=== PATIENT | female | born 1950 | race Caucasian/White ===

== ENCOUNTER 2017-05-15 15:54 | Emergency (ER) | payer MEDICARE ==
[~2017-05-15] VITALS: Ht 170.2 cm; Wt 83.4 kg
[~2017-05-15 15:54] MED LIST: CYCL-259 PO; DULO60CA7 PO; ENOX100S4 SQ; GABA300C10 PO; HYDR-3307 PO; HYDR2TAB29 PO; Initiate Coumadin Protocol MC; METO10TA82 PO; ONDA4TAB12 PO; ONDA4TAB7 PO; OXYC-307 PO; OXYC10TA47 PO; SULF1TAB24 PO
[2017-05-15 16:06] VITALS: BP 161/94
[2017-05-15] MEDS ORDERED: SODIUM CHLORIDE 0.9% 1,000 ML IV ONE (16:10)
[2017-05-15] MEDS ORDERED: CYCL-259 PO (16:15)
[2017-05-15] MEDS ORDERED: ONDANSETRON 2MG/ML, 2ML ONE (16:25)
[2017-05-15] MEDS ORDERED: MORPHINE SULFATE 4 MG/ML, 1ML ONE ×2 (16:25→17:03)
[2017-05-15] MEDS ORDERED: ONDANSETRON 2MG/ML, 2ML IVPush ONE (16:30)
[2017-05-15] MEDS ORDERED: SODIUM CHLORIDE 0.9% 1,000ML IVBOLUS ONE (16:30)
[2017-05-15] MEDS: MORPHINE SULFATE 4 MG/ML, 1ML IVPush PRN ×2 (16:40→17:16)
== END 2017-05-15 18:10 | disposition home or self-care (01) ==
LOC: ED 18:04
DX: S42.212A Unspecified displaced fracture of surgical neck of left humerus, initial encounter for closed fracture (principal); W18.09XA Striking against other object with subsequent fall, initial encounter; Y93.89 Activity, other specified; Y92.488 Other paved roadways as the place of occurrence of the external cause; Y99.8 Other external cause status; Z98.84 Bariatric surgery status
CPT/HCPCS: 29105; 73030; 96361; 96374; 96375; 96376; 99285; J2405; J7030

== ENCOUNTER 2017-08-14 08:17 | Emergency (ER) | payer MEDICARE, OTHER ==
[~2017-08-14] VITALS: Ht 170.2 cm; Wt 82.0 kg
[2017-08-14 09:22] LABS: BASOPHILS # (AUTO) 0.06 x10^3/uL (0-0.1); BASOPHILS % (AUTO) 1 % (0-1); EOSINOPHILS # (AUTO) 0.17 x10^3/uL (0-0.4); EOSINOPHILS % (AUTO) 3 % (1-7); LYMPHOCYTES # (AUTO) 1.58 x10^3/uL (1-3.4); LYMPHOCYTES % (AUTO) 26 % (22-44); MD NO; MEAN CORPUSCULAR HEMOGLOBIN 27.8 pg (27.0-34.8); MEAN CORPUSCULAR HGB CONC 32.4 g/dL (32.4-35.8); MEAN CORPUSCULAR VOLUME 85.8 fL (80-100); MEAN PLATELET VOLUME 9.1 fL (7.4-10.4); MONOCYTES # (AUTO) 0.39 x10^3/uL (0.2-0.8); MONOCYTES % (AUTO) 6 % (2-9); NEUTROPHILS # (AUTO) 3.97 x10^3/uL (1.8-6.8); NEUTROPHILS % (AUTO) 65 % (42-75); PLATELET COUNT 248 x10^3/uL (130-400); RED BLOOD COUNT 4.48 x10^6/uL (3.82-5.3); RED CELL DISTRIBUTION WIDTH 14.1 % (9.6-15.2)
[2017-08-14] MEDS ORDERED: SODIUM CHLORIDE FLUSH 10ML SYR IVF ONE (09:30)
[2017-08-14] MEDS ORDERED: MORPHINE SULFATE 4 MG/ML, 1ML IVPush PRN (09:30)
[2017-08-14] MEDS ORDERED: DIAZEPAM 5 MG/ML, 2ML IVPush ONE (09:30)
[2017-08-14] MEDS ORDERED: ONDANSETRON 2MG/ML, 2ML IVPush ONE (09:30)
[2017-08-14 09:31] LABS: ALBUMIN 3.3 g/dL (3.4-5.0); ANION GAP 8 mmol/L (5-15); CALCIUM 8.8 mg/dL (8.5-10.1); CHLORIDE 110 mmol/L (98-107)
[2017-08-14] MEDS ORDERED: DIAZEPAM 5 MG TABLET ONE (09:57)
[2017-08-14] MEDS ORDERED: ONDANSETRON ODT 8 MG ONE (09:57)
[2017-08-14] MEDS ORDERED: MORPHINE SULFATE 4 MG/ML, 1ML ONE (09:57)
[2017-08-14] MEDS ORDERED: DIAZEPAM 5 MG TABLET PO ONE (10:30)
[2017-08-14] MEDS ORDERED: ONDANSETRON ODT 4 MG PO ONE (10:30)
[2017-08-14 12:31] VITALS: BP 133/86
== END 2017-08-14 12:34 | disposition home or self-care (01) ==
LOC: ED 09:34
DX: M48.56XA Collapsed vertebra, not elsewhere classified, lumbar region, initial encounter for fracture (principal); M51.36 Other intervertebral disc degeneration, lumbar region; Z98.84 Bariatric surgery status
CPT/HCPCS: 36415; 72110; 80048; 82040; 85025; 96374; 99285; Q0162

== ENCOUNTER 2017-12-09 14:09 | Emergency (ER) | payer OTHER ==
[~2017-12-09] VITALS: Ht 170.2 cm; Wt 86.7 kg
[2017-12-09 14:59] LABS: MICROSCOPIC NOT IND
[2017-12-09 15:00] LABS: BASOPHILS # (AUTO) 0.02 x10^3/uL (0-0.1); BASOPHILS % (AUTO) 0 % (0-1); EOSINOPHILS # (AUTO) 0.13 x10^3/uL (0-0.4); EOSINOPHILS % (AUTO) 2 % (1-7); LYMPHOCYTES # (AUTO) 1.74 x10^3/uL (1-3.4); LYMPHOCYTES % (AUTO) 24 % (22-44); MD NO; MEAN CORPUSCULAR HEMOGLOBIN 27.5 pg (27.0-34.8); MEAN CORPUSCULAR HGB CONC 32.7 g/dL (32.4-35.8); MEAN CORPUSCULAR VOLUME 84.2 fL (80-100); MEAN PLATELET VOLUME 8.8 fL (7.4-10.4); MONOCYTES # (AUTO) 0.56 x10^3/uL (0.2-0.8); MONOCYTES % (AUTO) 8 % (2-9); NEUTROPHILS # (AUTO) 4.93 x10^3/uL (1.8-6.8); NEUTROPHILS % (AUTO) 67 % (42-75); PLATELET COUNT 241 x10^3/uL (130-400); RED BLOOD COUNT 4.44 x10^6/uL (3.82-5.3); RED CELL DISTRIBUTION WIDTH 14.3 % (9.6-15.2)
[2017-12-09 15:03] LABS: CULTURE INDICATED? NO
[2017-12-09 15:14] LABS: CHLORIDE 108 mmol/L (98-107)
[2017-12-09 15:24] LABS: ALANINE AMINOTRANSFERASE 23 U/L (12-78); ALBUMIN 3.8 g/dL (3.4-5.0); ALKALINE PHOSPHATASE 135 U/L (45-117); ANION GAP 5 mmol/L (5-15); BILIRUBIN,TOTAL 0.6 mg/dL (0.2-1.0); CALCIUM 9.4 mg/dL (8.5-10.1); CREATININE 1.14 mg/dL (0.55-1.02); TOTAL PROTEIN 7.3 g/dL (6.4-8.2)
[2017-12-09 15:26] LABS: INTERNATIONAL NORMALIZED RATIO 0.96 (0.93-1.1); PROTHROMBIN TIME 9.9 Seconds (9.6-11.5)
[2017-12-09] MEDS ORDERED: GADOBUTROL 10 MMOL/10 ML PFS ONE (17:49)
[2017-12-09 18:11] VITALS: BP 136/85
== END 2017-12-09 19:11 | disposition home or self-care (01) ==
LOC: ED 15:26
DX: M51.36 Other intervertebral disc degeneration, lumbar region (principal); M48.061 Spinal stenosis, lumbar region without neurogenic claudication; N39.41 Urge incontinence; F17.200 Nicotine dependence, unspecified, uncomplicated; Z90.89 Acquired absence of other organs; Z90.710 Acquired absence of both cervix and uterus
CPT/HCPCS: 36415; 72157; 72158; 80053; 81003; 85025; 85610; 85730; 99285; A9585